=== PATIENT | female | born 1960 | race Caucasian/White ===

== ENCOUNTER → 2016-12-28 | Outpatient (CLI) | payer OTHER ==
[~2016-12-28] MED LIST: MULTI VITAMIN1 EACH PO; NORCO 5-325 MG1 TAB PO
== END | disposition disaster alternative care site (69) ==
LOC: GBCOE 08:51
DX: C50.412 Malignant neoplasm of upper-outer quadrant of left female breast (principal); Z85.3 Personal history of malignant neoplasm of breast; Z90.12 Acquired absence of left breast and nipple
CPT/HCPCS: G0206; G0279